=== PATIENT | female | born 1955 | race African-American/Black ===

== ENCOUNTER 2017-07-30 10:23 | Emergency (ER) | payer MEDICAID ==
[~2017-07-30] VITALS: Ht 170.2 cm; Wt 82.0 kg
[2017-07-30] MEDS ORDERED: GABA-533 PO (11:10)
[2017-07-30] MEDS ORDERED: AMLO10TA80 PO (11:10)
[2017-07-30] MEDS ORDERED: LOSA50TA20 PO (11:10)
[2017-07-30] MEDS ORDERED: METO-411 PO (11:10)
[2017-07-30] MEDS ORDERED: METF500T7 PO (11:11)
[2017-07-30] MEDS ORDERED: KETOROLAC 30MG/ML VIAL IM ONE (12:00)
[2017-07-30 12:35] VITALS: BP 132/60
== END 2017-07-30 12:36 | disposition home or self-care (01) ==
LOC: ER 12:06
DX: M54.5 Low back pain (principal); I10 Essential (primary) hypertension; E11.9 Type 2 diabetes mellitus without complications; E78.00 Pure hypercholesterolemia, unspecified; Z98.890 Other specified postprocedural states
CPT/HCPCS: 96372; 99283; J1885; Z7610